=== PATIENT | male | born 1970 | race Caucasian/White ===

== ENCOUNTER 2018-09-03 12:50 | Outpatient (REF) | payer MEDICAID, SELFPAY ==
[2018-09-03 22:28] LABS: Abs Immature Grans 0.01 k/cumm (0.0-0.09); Absolute Basophil Count 0.01 k/cumm (0.0-0.2); Absolute Eosinophil Count 0.03 k/cumm (0.0-0.7); Absolute Lymphocyte Count 1.41 k/cumm (1.2-3.4); Absolute Monocyte Count 0.33 k/cumm (0.11-0.7); Absolute Neutrophil Count 3.21 k/cumm (1.2-6.7); Basophils % 0.2; Eosinophils % 0.6; HCT 43.5 % (40.0-50.0); HGB 14.5 g/dL (13.5-17.5); Immature Grans % 0.2; Lymphocytes % 28.2; Mean Corp. HGB Concentration 33.3 g/dL (32.0-36.0); Mean Corpuscular Volume 90.1 fL (80-95); Mean Platelet Volume 11.6 fL (8.0-11.0); Monocytes % 6.6; Neutrophils % 64.2; Platelet Count 174 x1000/uL (130-400); RBC 4.83 m/cumm (4.50-6.00); RBC Distribution Width 12.5 % (11.8-14.1)
[2018-09-03 22:40] LABS: ALT 45 U/L (12-78); AST 23 U/L (15-37); Alkaline Phosphatase 72 U/L (46-116); Anion Gap 9.8 mmol/L (3-11); BUN 23 mg/dL (7-18); Bilirubin, Total 0.4 mg/dL (0.2-1.0); C-Reactive Protein 3.76 mg/dL (0.0-0.3); CO2 29.2 mmol/L (21.0-32.0); CREATININE 0.87 mg/dL (0.70-1.30); Calcium 9.4 mg/dL (8.5-10.1); Chloride 101 mmol/L (98-107); Glucose 90 mg/dL (70-100); Potassium 4.2 mmol/L (3.5-5.1); Sodium 140 mmol/L (136-145); Total Protein 7.8 g/dL (6.4-8.2)
[2018-09-03 23:21] LABS: ESR 30 MM/HR (0-15)
[2018-09-05 12:21] LABS: Lyme Ab w Rflx to Lyme Confirm Negative
[2018-09-05 23:10] LABS: Bartonella Henselae IgM <1:20 titer (<1:20); Bartonella Quintana IgG <1:128 titer (<1:128); Bartonella Quintana IgM <1:20 titer (<1:20)
[2018-09-06 15:46] LABS: Anaplasma phagocytophilum Negative (Negative); B. miyamotoi PCR Negative (Negative); Babesia divergens/MO-1 Negative (Negative); Babesia duncani Negative (Negative); Babesia microti Negative (Negative); Ehrlichia chaffeensis Negative (Negative); Ehrlichia ewingii/canis Negative (Negative); Ehrlichia muris eauclairensis Negative (Negative)
== END 2018-09-03 13:10 ==
LOC: NCHCN 12:50
PROVIDERS: PCP Nurse Practitioner Family; Visit Provider Nurse Practitioner Family
DX: R21 Rash and other nonspecific skin eruption (principal); N61.0 Mastitis without abscess
CPT/HCPCS: 80053; 85652; 85025; 86140; 86611; 86618; 87798

== ENCOUNTER 2018-12-13 10:28 | Outpatient (REF) | payer MEDICAID, SELFPAY ==
[2018-12-17 14:41] LABS: Chlamydia Result Negative; GC Result Negative; Specimen Description URINE
== END 2018-12-13 10:48 ==
LOC: NCHCN 10:28
PROVIDERS: PCP Nurse Practitioner Family; Visit Provider Nurse Practitioner Family
DX: Z20.2 Contact with and (suspected) exposure to infections with a predominantly sexual mode of transmission (principal); Z11.3 Encounter for screening for infections with a predominantly sexual mode of transmission
CPT/HCPCS: 87491; 87591

== ENCOUNTER 2020-02-11 14:27 | Outpatient (REF) | payer MEDICAID, SELFPAY ==
[2020-02-13 17:14] LABS: COVID-19 RT-PCR Result NEGATIVE (Negative)
== END 2020-02-11 14:47 ==
LOC: NCHCN 14:27
PROVIDERS: PCP Nurse Practitioner Family; Visit Provider Physician Assistant
DX: R06.09 Other forms of dyspnea (principal)
CPT/HCPCS: U0003

== ENCOUNTER 2020-06-11 19:11 | Outpatient (REF) | payer MEDICAID, SELFPAY ==
[2020-06-11 21:30] LABS: Abs Immature Grans 0.02 10^3/uL (0.0-0.06); Absolute Basophil Count 0.03 10^3/uL (0.0-0.2); Absolute Eosinophil Count 0.06 10^3/uL (0.0-0.7); Absolute Lymphocyte Count 1.65 10^3/uL (1.2-3.4); Absolute Monocyte Count 0.36 10^3/uL (0.1-0.8); Absolute Neutrophil Count 2.98 10^3/uL (1.2-6.7); Basophils % 0.6; Eosinophils % 1.2; HCT 42.7 % (40.0-50.0); Immature Grans % 0.4; Lymphocytes % 32.4; MCH 29.9 pg (27.0-33.0); MCHC 32.8 % (32.0-36.0); MCV 91.2 fL (80-95); MPV 11.6 fL (8.0-11.0); Monocytes % 7.1; Neutrophils % 58.3; Nucleated RBC 0 %; Platelet Count 190 10^3/uL (130-400); RBC 4.68 10^6/uL (4.36-5.78); RDW 12.5 % (11.8-14.1); RDW-SD 41.3 fL
[2020-06-11 21:48] LABS: Calculated LDL 162 mg/dL (<100); Cholesterol 258 mg/dL (<200); HDL Cholesterol 41 mg/dL (40-60); Triglyceride 275 mg/dL (<150)
== END 2020-06-11 19:31 ==
LOC: NCHCN 19:11
PROVIDERS: PCP Nurse Practitioner Family; Visit Provider Internal Medicine
DX: R06.02 Shortness of breath (principal); Z13.6 Encounter for screening for cardiovascular disorders
CPT/HCPCS: 80061; 85025

== ENCOUNTER 2021-04-23 09:27 | Outpatient (REF) | payer MEDICAID, SELFPAY ==
[2021-04-23 16:57] LABS: Calculated LDL 168 mg/dL (<100); Cholesterol 248 mg/dL (<200); HDL Cholesterol 56 mg/dL (40-60); Triglyceride 122 mg/dL (<150)
[2021-04-24 10:14] LABS: HIV-1/2 Ag & Ab Screen Negative (Negative)
== END 2021-04-23 09:28 | disposition home or self-care (01) ==
LOC: NCHCN 09:27
PROVIDERS: PCP Nurse Practitioner Family; Visit Provider Internal Medicine
DX: Z11.3 Encounter for screening for infections with a predominantly sexual mode of transmission (principal); E78.5 Hyperlipidemia, unspecified; Z11.4 Encounter for screening for human immunodeficiency virus [HIV]
CPT/HCPCS: 80061; 87389

== ENCOUNTER 2022-06-09 15:36 | Outpatient (REF) | payer MEDICAID, SELFPAY ==
[2022-06-09 16:32] LABS: Anion Gap 9.8 mmol/L (3-11); BUN 16 mg/dL (7-18); CO2 28.2 mmol/L (21.0-32.0); CREATININE 0.9 mg/dL (0.70-1.30); Calcium 9.2 mg/dL (8.5-10.1); Calculated LDL 220 mg/dL (<100); Chloride 102 mmol/L (98-107); Cholesterol 305 mg/dL (<200); Glucose 104 mg/dL (74-106); HDL Cholesterol 50 mg/dL (40-60); Potassium 3.7 mmol/L (3.5-5.1); Sodium 140 mmol/L (136-145); Triglyceride 177 mg/dL (<150)
== END 2022-06-09 15:37 | disposition home or self-care (01) ==
LOC: NCHCN 15:36
PROVIDERS: PCP Nurse Practitioner Family; Visit Provider Nurse Practitioner Family
DX: Z00.00 Encounter for general adult medical examination without abnormal findings (principal)
CPT/HCPCS: 80048; 80061

== ENCOUNTER 2023-06-28 22:11 | Outpatient (REF) | payer MEDICAID, SELFPAY ==
[2023-06-28 23:05] LABS: ALT 38 U/L (16-63); AST 28 U/L (15-37); Albumin 3.9 g/dL (3.4-5.0); Alkaline Phosphatase 62 U/L (46-116); Anion Gap 7.2 mmol/L (3-11); BUN 16 mg/dL (7-18); Bilirubin, Total 0.4 mg/dL (0.2-1.0); CO2 26.8 mmol/L (21.0-32.0); CREATININE 0.9 mg/dL (0.70-1.30); Calcium 9.2 mg/dL (8.5-10.1); Calculated LDL 206 mg/dL (<100); Chloride 102 mmol/L (98-107); Cholesterol 288 mg/dL (<200); Estimated GFR 104.05 (mL/min/1.73m2); Glucose 96 mg/dL (74-106); HDL Cholesterol 56 mg/dL (40-60); Potassium 4.3 mmol/L (3.5-5.1); Sodium 136 mmol/L (136-145); Triglyceride 130 mg/dL (<150)
== END 2023-06-28 22:12 | disposition home or self-care (01) ==
LOC: NCHCN 22:11
PROVIDERS: PCP Nurse Practitioner Family; Visit Provider Internal Medicine
DX: E78.5 Hyperlipidemia, unspecified (principal)
CPT/HCPCS: 80053; 80061

== ENCOUNTER 2024-08-13 08:27 | Outpatient (REF) | payer MEDICAID, SELFPAY ==
[2024-08-13 15:23] LABS: Calculated LDL 174 mg/dL (<100); Cholesterol 270 mg/dL (<200); HDL Cholesterol 60 mg/dL (40-60); Triglyceride 181 mg/dL (<150)
== END 2024-08-13 08:28 | disposition home or self-care (01) ==
LOC: NCHCN 08:27
PROVIDERS: PCP Nurse Practitioner Family; Visit Provider Internal Medicine
DX: E78.5 Hyperlipidemia, unspecified (principal)
CPT/HCPCS: 80061

== ENCOUNTER 2025-09-03 08:48 | Outpatient (REF) | payer MEDICAID, SELFPAY ==
[2025-09-03 15:51] LABS: HCT 44.0 % (40.0-50.0); HGB 14.5 g/dL (13.5-17.5); MCH 29.4 pg (27.0-33.0); MCHC 33.0 % (32.0-36.0); MCV 89 fL (80-95); MPV 11.3 fL (8.0-11.0); Platelet Count 208 10^3/uL (130-400); RBC 4.93 10^6/uL (4.36-5.78); RDW 12.9 % (11.8-14.1); RDW-SD 42.4 fL; WBC 4.65 10^3/uL (4.4-10.8)
[2025-09-03 18:04] LABS: ALT 56 U/L (10-49); AST 32 U/L (<34); Albumin 4.3 g/dL (3.2-5.0); Alkaline Phosphatase 55 U/L (46-116); Anion Gap 7.1 mmol/L (3-11); BUN 14 mg/dL (9-23); Bilirubin, Total 0.5 mg/dL (0.2-1.2); CO2 29.9 mmol/L (20.0-31.0); Calcium 9.1 mg/dL (8.3-10.6); Chloride 103 mmol/L (98-107); Cholesterol 301 mg/dL (<200); Glucose 98 mg/dL (74-106); HDL Cholesterol 54 mg/dL (>40); Potassium 4.4 mmol/L (3.5-5.1); Sodium 140 mmol/L (136-145); Total Protein 7.4 g/dL (5.7-8.2)
== END 2025-09-03 08:49 | disposition home or self-care (01) ==
LOC: NCHCN 08:48
PROVIDERS: PCP Nurse Practitioner Family; Visit Provider Internal Medicine
DX: E78.5 Hyperlipidemia, unspecified (principal); R03.0 Elevated blood-pressure reading, without diagnosis of hypertension
CPT/HCPCS: 80053; 80061; 85027